=== PATIENT | female | born 1950 | race Caucasian/White ===

== ENCOUNTER 2019-11-08 14:23 | Emergency (ER) | payer MEDICARE, MEDICAID ==
[~2019-11-08] VITALS: Ht 160 cm; Wt 75.6 kg
[2019-11-08 14:28] VITALS: BP 155/87
[2019-11-08] MEDS ORDERED: KETOROLAC 30 MG/1 ML IM ONE (15:30)
[2019-11-08] MEDS ORDERED: KETOROLAC 30 MG/1 ML ONE (15:35)
--- NOTE | 2019-11-08 15:40 | NUR ---
PT MEDICATED FOR BACK AND LEG PAIN. CALL LIGHT WITHIN REACH, WARM BLANKET PROVIDED.
--- NOTE | 2019-11-08 15:50 | NUR ---
XR RESULTS BACK, PT FOR RECHECK.
== END 2019-11-08 17:09 | disposition home or self-care (01) ==
LOC: ED 16:30
DX: G89.29 Other chronic pain (principal); M54.16 Radiculopathy, lumbar region; M25.551 Pain in right hip; M25.561 Pain in right knee; M79.651 Pain in right thigh
CPT/HCPCS: 72110; 96372; 99283; J1885